=== PATIENT | male | born 1990 | race Two or more races ===

== ENCOUNTER 2023-06-16 21:06 | Emergency (ER) | payer OTHER ==
[~2023-06-16] VITALS: Ht 170.2 cm; Wt 81.6 kg
[2023-06-16] MEDS ORDERED: IBUP-1955 PO (22:30)
[2023-06-16] MEDS ORDERED: AMOX500C2 PO (22:31)
[2023-06-16 22:47] VITALS: BP 128/72; TEMP 98.1; O2SAT 98
== END 2023-06-16 22:47 | disposition home or self-care (01) ==
LOC: ER 21:14
DX: K08.89 Other specified disorders of teeth and supporting structures (principal); F20.9 Schizophrenia, unspecified